=== PATIENT | male | born 1975 | race Caucasian/White ===

== ENCOUNTER 2019-04-25 07:47 | Day surgery (SDC) | payer OTHER ==
--- NOTE | 2019-04-22 13:08 | HP ---
PREOPERATIVE HISTORY AND PHYSICAL: DATE OF SURGERY: 04/25/19 - OR [facility] SURGEON: Dr. Gene Hernandez.* (DICTATED BY CANDY ROE) PROCEDURE: Right shoulder arthroscopic decompression, debridement, possible arthroscopic rotator cuff repair, subpectoral biceps tenodesis, arthroscopic labral repair. CHIEF COMPLAINT: Right shoulder pain. HISTORY OF PRESENT ILLNESS: Clif is a 43-year-old male who presented to clinic for followup of right shoulder pain due to rotator cuff tear, biceps tendonitis, and labral tear. He has failed conservative measures, therefore agreed to undergo right shoulder arthroscopic decompression, debridement, possible arthroscopic rotator cuff repair, subpectoral biceps tenodesis, arthroscopic labral repair with Dr. Hernandez on 04/25/19. PAST MEDICAL HISTORY: Anxiety. PAST SURGICAL HISTORY: Left elbow and tonsils. The patient denies prior complications with anesthesia. MEDICATIONS: No listed medications. ALLERGIES: No known drug allergies. FAMILY HISTORY: Positive for diabetes in his mom, heart disease in his grandfather, cancer in his grandmother. Denies family history of DVT or PE. SOCIAL HISTORY: He lives with his spouse. He works as a special forces officer. He denies tobacco use. He does chew tobacco. He reports occasional alcohol consumption. He is right hand dominant. REVIEW OF SYSTEMS: A 14-point review of systems was reviewed with the patient. Positive for current complaint, otherwise negative. Denies fever, chills, chest pain, shortness of breath, history of bleeding disorder, history of DVT or PE. PHYSICAL EXAMINATION VITAL SIGNS: Height 77, weight 225. Pulse 71, blood pressure 122/78, temperature 98.1, BMI 26.7. HEENT: Normocephalic, atraumatic. PERRLA. Throat clear. NECK: Supple. PULMONARY: Lungs are clear to auscultation bilaterally. No wheezing, rhonchi, or rales. CARDIO: Regular rate and rhythm. S1, S2. No murmurs, gallops, or rubs. No edema. ABDOMEN: Positive bowel sounds. Soft, nontender. NEUROLOGIC: Alert and oriented x3. Cranial nerves grossly intact. MUSCULOSKELETAL: Right upper extremity: Skin is intact. No warmth or erythema. Forward flexion 150, abduction 150, external rotation 55, internal rotation to the lumbar spine. +5/5 strength to rotator cuff testing obtained. Positive impingement; Speed's, Garber-Giancarlo, and [place]'s. +2 radial pulse. Sensation intact to light touch distally. He does have tenderness to palpation over the distal biceps tendon. Positive Hook test. DIAGNOSTIC STUDIES/LAB DATA: MRI revealed partial thickness tearing of the rotator cuff. PLAN: The patient is scheduled to undergo right shoulder arthroscopic decompression, debridement, possible arthroscopic rotator cuff repair, subpectoral biceps tenodesis, and arthroscopic labral repair on 04/25/[address] Hernandez. Percocet will be used for postop pain medication. He is also having some persistent distal biceps pain after his injury, therefore this is a worker's comp request and MRI of the right elbow without contrast to evaluate the distal biceps. The patient will follow up 10 to 14 days postop for followup and suture removal. CANDY ROE [id number]/[facility] #: [id number] IMER
[~2019-04-25 07:47] MED LIST: Buffered Lidocaine 1% SYRIN* 1 ML/SYRINGE INTRADERM ONE; Bupivacaine 0.25% SDV* 30 ML ONE; Dexamethasone TAB* 4 MG ONE; Dexamethasone TAB* 4 MG PO ONE; DiMENhydriNATE IV* 50 MG/ML VIAL IV PUSH PRN; Famotidine IV* 10 MG/ML 2 ML (20 mg) IV ONE; Famotidine IV* 10 MG/ML 2 ML (20 mg) ONE; HYDROmorphone INJ1* 1 MG/ML SYRINGE IV PRN; Lactated Ringers 1000 ML Bag* 1,000 ML IV SCH; Naloxone* 0.4 MG/ML 1 ML VIAL IV PRN; Ondansetron ODT TAB* 4 MG ONE; Ondansetron ODT TAB* 4 MG PO ONE; PROCHLORPERAZINE INJ 5 MG/ML 2 ML VIAL IV PRN; Scopolamine 1.5 mg* PATCH TRANSDERM PRN; fentaNYL* 50 MCG/ML 2 ML VIAL (100 MCG VIAL) IV PRN; oxyCODONE/Acetamin 5/325 MG* TAB PO PRN
[2019-04-25] MEDS ORDERED: ceFAZolin 2 GM in NS PREMIX(*) 2 GM/100 ML BAG IVPB ONE (08:09)
[2019-04-25] MEDS ORDERED: Bupivacaine 0.25% SDV* 30 ML ONE (08:25)
[2019-04-25] MEDS ORDERED: KETAMINE HCL* 50 MG/ML 10 ML VIAL ONE (09:19)
[2019-04-25] MEDS ORDERED: fentaNYL* 50 MCG/ML 2 ML VIAL (100 MCG VIAL) ONE ×2 (09:19→11:36)
[2019-04-25] MEDS ORDERED: Midazolam* 1 MG/ML 5 ML VIAL (5 MG) ONE (09:19)
[2019-04-25] MEDS ORDERED: Ketorolac INJ* 30 MG/ML 1 ML VIAL ONE (11:22)
[2019-04-25] MEDS ORDERED: Propofol* 10 MG/ML 20 ML BTL ONE (11:22)
[2019-04-25] MEDS ORDERED: Lidocaine 2% PF * 5 ML VIAL ONE (11:22)
[2019-04-25] MEDS ORDERED: hydrALAZINE IV* 20 MG/ML VIAL ONE (11:46)
[2019-04-25] MEDS ORDERED: Labetalol IV* 5 MG/ML 20 ML VIAL ONE (11:51)
[2019-04-25 12:58] VITALS: BP 131/86
--- NOTE | 2019-04-25 23:13 | OP ---
DATE OF OPERATION: 04/25/19 - [facility] DATE OF : 71 SURGEON: Gene Hernandez MD VEHICLE PAINTER: CANDY Osei. An sales assistant institutional sales was needed for the entirety of the case to help with position, retraction, and utilized throughout all portions of the case. ANESTHESIOLOGIST: Dr. Reveles. ANESTHESIA: General interscalene block. PRE-OP DIAGNOSES: 1. Anterior shoulder instability, recurrent. 2. Possible partial-thickness tear of the rotator cuff with impingement. 3. Possible biceps tendonitis. POST-OP DIAGNOSIS: Anteroinferior labral tear with mild chondrosis and stiffness, intact biceps and impingement with an intact rotator cuff. OPERATIVE PROCEDURE: Right shoulder arthroscopy with: 1. Anterior labral repair. 2. Subacromial decompression with acromioplasty. IMPLANTS USED: Three Bioraptors and one 1.8 Q-Fix anchor. INDICATIONS: Clif Mixon is a 43-year-old male who sustained work-related injury in January where he was injured while restraining someone, he had significant pain, he had loss of motion, he felt unstable and uncomfortable. He has failed physical therapy. He has stiffness with range of motion. There was concern based on the MRI that he may have a rotator cuff tear as well. After extensive discussion of the risks and benefits, operative versus nonoperative treatment, he has elected to proceed with surgical treatment. The risks included but not limited to bleeding; infection; damage to nerves, vessels, surrounding structures; wound nonhealing; persistent pain; need for surgery; scarring; stiffness; incomplete relief of symptoms; risk of anesthesia. DESCRIPTION OF PROCEDURE: The patient was greeted in the preoperative area by the attending surgeon. Correct extremity was marked and consent was confirmed. The patient was brought back to the operating suite. The patient underwent interscalene nerve block by the anesthesiologist after which he was brought back to the operating suite. He was placed in supine position on the operating table. He then underwent general anesthesia with LMA intubation after which he was placed in the left lateral decubitus position. All bony prominences were padded. He was secured with peg-board. Right arm was draped unsterile with 10 pounds of traction. The lateral ethel was placed to help with distraction. Range of motion was checked with the patient in lateral position. I was able to forward flex into about 160. I did not check external rotation. The right arm was prepped and draped in the usual sterile fashion beginning with chlorhexidine soap, scrub, and alcohol wipe and a final prep with ChloraPrep. After an appropriate surgical pause indicating side, site, procedure, and administration of antibiotics, the standard posterior lateral portal was made sharply with 11 blade. The scope was introduced into the joint. Joint was examined. There was minimal fraying of the undersurface of the rotator cuff. The glenohumeral joint had obvious synovitis and inflammation. The head was subluxed, dislocated anteriorly relative to the glenoid. The inferior recess was intact. He did have a positive drive-through sign, although there was more stiffness than I expected. The posterior labrum had no obvious tearing. The superior labrum was intact. Biceps was intact. There was no evidence of damage to the karla. The subscap was intact as well. The low anterior portal was then made. An 8.5-mm cannula was placed as a working cannula. A second 5.5 mm-cannula was then placed for suture passage and management. The lateral ethel was then used to help distract the joint. The scope was then positioned to expose the inferior aspect of the glenoid. There were some areas of grade 4 changes at the very edge of the anterior aspect of the glenoid. The labrum was obviously torn but not grossly displaced. The elevator was used to help elevate the labrum off while the glenoid was prepared with red ball rasp and a double- sided rasp. The capsule was also rasped somewhat to allow for extra healing. There was good bony bleeding. [place] placement was again very far inferior at around the 5:30 to 6 o'clock position. The Q-Fix curve guide was then used. The 1.8-mm anchor was then placed with excellent purchase. Sutures were then passed through the tendon in horizontal mattress configuration and tied down. This was then tied down and this helped to restore the inferior superior shift in the inferior part of the labrum. Second anchor was a Bioraptor placed at about the 5 o'clock position. Suture was passed in a horizontal mattress configuration, again this helped to tie down and remove the drive-through sign. A second Bioraptor was placed at 4:30 position and passed in a horizontal mattress configuration; again this helped to restore the bumper, and then a third anchor was placed at around the 3 o'clock position in a simple fashion. This was then tied down. Final images were obtained. The shoulder was found to be sitting appropriately in the center of the glenoid. The shoulder was then debrided of any loose debris. Once the fluid was removed from the joint, attention was directed to subacromial space. The scope was positioned in the subacromial space. Lateral portal was made in an outside-in fashion. There was abundant thick significant bursitis that was present. The shaver was used to remove the abundant bursitis. The electrocautery device was used to maintain hemostasis. The undersurface of the acromion was skeletonized using electrocautery device. The 4-0 oval nikujn was then used to do an acromioplasty as there was quite a bit of downward sloping spur. All excess bone and debris was removed, and final images were obtained. The wounds were then copiously irrigated with sterile saline. The portals were then closed with 3-0 nylon in interrupted fashion. Sterile dressings were applied. A Cryo/Cuff and UltraSling were applied. He was awoken from anesthesia and transferred to PACU in stable condition. POSTOPERATIVE PLAN: He will be nonweightbearing. He will be in a sling for approximately 4 weeks. He will start physical therapy next week. He will be discharged on pain medications. DVT prophylaxis was considered but deferred due to no previous personal or family history. I will see the patient back in 10 to 14 days. [id number]/[facility] #: [id number] IMER
[2019-04-28] MEDS ORDERED: Scopolamine PATCH Remove* 1 NOTE MISC PATCH OFF ONE (05:54)
== END 2019-04-25 13:15 | disposition home or self-care (01) ==
LOC: OREAST 07:47
PROVIDERS: ATTEND Orthopaedic Surgery
DX: S43.491A Other sprain of right shoulder joint, initial encounter (principal); M75.41 Impingement syndrome of right shoulder; X50.0XXA Overexertion from strenuous movement or load, initial encounter; Y93.89 Activity, other specified; Y92.9 Unspecified place or not applicable; Y99.0 Civilian activity done for income or pay; G89.18 Other acute postprocedural pain
CPT/HCPCS: A9270-GY; J0360; J0690; J1885; J2250; J2704; J3010; J3490; J8540

== ENCOUNTER 2019-12-15 05:59 | Day surgery (SDC) | payer OTHER ==
[~2019-12-15 05:59] MED LIST changes: +Buffered Lidocaine 1% SYRIN 1 ml INTRADERM ONE; -Buffered Lidocaine 1% SYRIN* 1 ML/SYRINGE INTRADERM ONE; -Bupivacaine 0.25% SDV* 30 ML ONE; -Dexamethasone TAB* 4 MG ONE; -Dexamethasone TAB* 4 MG PO ONE; -DiMENhydriNATE IV* 50 MG/ML VIAL IV PUSH PRN; -Famotidine IV* 10 MG/ML 2 ML (20 mg) IV ONE; -Famotidine IV* 10 MG/ML 2 ML (20 mg) ONE; -HYDROmorphone INJ1* 1 MG/ML SYRINGE IV PRN; -Lactated Ringers 1000 ML Bag* 1,000 ML IV SCH; -Naloxone* 0.4 MG/ML 1 ML VIAL IV PRN; -Ondansetron ODT TAB* 4 MG ONE; -Ondansetron ODT TAB* 4 MG PO ONE; -PROCHLORPERAZINE INJ 5 MG/ML 2 ML VIAL IV PRN; -Scopolamine 1.5 mg* PATCH TRANSDERM PRN; -fentaNYL* 50 MCG/ML 2 ML VIAL (100 MCG VIAL) IV PRN; -oxyCODONE/Acetamin 5/325 MG* TAB PO PRN
[2019-12-15] MEDS ORDERED: Famotidine IV 10 MG/ML 2 ml VIAL (20 mg) IV ONE (06:00)
[2019-12-15] MEDS ORDERED: Lactated Ringers 1000 ml BAG 1,000 ML IV SCH (06:00)
[2019-12-15] MEDS ORDERED: Famotidine IV 10 MG/ML 2 ml VIAL (20 mg) ONE (06:19)
[2019-12-15] MEDS ORDERED: Buffered Lidocaine 1% SYRIN 1 ml INTRADERM ONE (06:19)
[2019-12-15] MEDS ORDERED: fentaNYL 100 mcg/2 ml 50 MCG/ML VIAL ONE (07:16)
[2019-12-15] MEDS ORDERED: fentaNYL 100 mcg/2 ml 50 MCG/ML VIAL IV PRN (07:16)
[2019-12-15] MEDS ORDERED: Midazolam 2 mg/2 ml VIAL 1 mg/ml 2 ml VIAL (2 mg) ONE (07:16)
[2019-12-15] MEDS ORDERED: DiMENhydriNATE IV 50 mg/ml 1 ml VIAL IV PUSH PRN (07:16)
[2019-12-15] MEDS ORDERED: Ondansetron 4 mg VIAL 2 MG/ML 2 ml VIAL IV PRN (07:16)
[2019-12-15] MEDS ORDERED: diPHENhydraMINE IV 50 MG/ML 1 ml VIAL (BENADRYL) IV PRN (07:16)
[2019-12-15] MEDS ORDERED: Prochlorperazine 5 mg/ml 2 ml VIAL (10 mg) IV PRN (07:16)
[2019-12-15] MEDS ORDERED: Naloxone 0.4 mg VIAL 0.4 mg/ml 1 ml VIAL IV PRN (07:16)
[2019-12-15] MEDS ORDERED: Lidocaine 2% PF 5 ML VIAL ONE (07:42)
[2019-12-15] MEDS ORDERED: Propofol 10 MG/ML 20 ML BTL ONE ×2 (07:43→08:05)
[2019-12-15] MEDS ORDERED: Dexamethasone IV 4 MG/ML VIAL 1 ml VIAL ONE (07:43)
[2019-12-15 08:24] VITALS: BP 121/84
== END 2019-12-15 09:55 | disposition home or self-care (01) ==
LOC: OR 05:59
PROVIDERS: ATTEND Orthopaedic Surgery Hand Surgery